=== PATIENT | male | born 1960 | race Caucasian/White ===

== ENCOUNTER 2022-04-20 20:22 | Emergency (ER) | payer MEDICARE ==
[2022-04-20] MEDS ORDERED: Acetaminophen 500 MG Tab PO ONE (20:35)
[2022-04-20 21:04] LABS: ESTIMATED GFR 70 mL/min (>60)
[2022-04-20] MEDS: Sodium Chloride 0.9% 1,000 ML IV ONE ×3 (21:17→23:19)
[2022-04-20] MEDS: Piperacillin/Tazobactam 4.5 GM in Sodium Chloride 0.9% 100 ML IV SCH (21:18)
[2022-04-20] MEDS ORDERED: VANCOmycin 2 GM/400 ML 2 GM in Premix Bag 1 BAG IV ONE (22:00)
[2022-04-20] MEDS ORDERED: Iopamidol 755 MG/ML 150 ML Bottle IV ONE (22:42)
[2022-04-20] MEDS ORDERED: Ketorolac 30 MG/ML SDV IVPUSH ONE (22:44)
[2022-04-20] MEDS ORDERED: Ketorolac 30 MG/ML SDV ONE (22:45)
[2022-04-21] MEDS: Sodium Chloride 0.9% 1,000 ML IV SCH ×2 (00:21→05:55)
[2022-04-21] MEDS ORDERED: Acetaminophen 500 MG Tab PO ONE (02:32)
[2022-04-21] MEDS: Piperacillin/Tazobactam 4.5 GM in Sodium Chloride 0.9% 100 ML IV SCH (03:18)
[2022-04-21] MEDS ORDERED: Pseudoephedrine 30 MG Tab PO ONE (04:50)
[2022-04-21] MEDS ORDERED: guaiFENesin 600 MG Tab.ER ONE (04:56)
[2022-04-21] MEDS ORDERED: guaiFENesin 600 MG Tab.ER PO ONE (04:59)
== END 2022-04-21 08:30 ==
LOC: FB.ED 20:22
DX: A41.9 Sepsis, unspecified organism (principal); R65.20 Severe sepsis without septic shock; E11.9 Type 2 diabetes mellitus without complications; B35.4 Tinea corporis; E66.01 Morbid (severe) obesity due to excess calories; Z68.30 Body mass index [BMI] 30.0-30.9, adult; Z79.82 Long term (current) use of aspirin; Z79.899 Other long term (current) drug therapy; Z20.822 Contact with and (suspected) exposure to COVID-19; Z96.82 Presence of neurostimulator
CPT/HCPCS: 36415; 71045; 74177; 80053; 80202; 81001; 83605; 84484; 85025; 86140; 87040; 93005; 93010; 96361; 96365; 96366; 96367; 96375; 99285; 99285-25; A9270-GY; J1885; J2543; J3370; J7030; Q9967; U0002